=== PATIENT | male | born 1995 | race Caucasian/White ===

== ENCOUNTER 2021-06-22 14:08 | Emergency (ER) | payer OTHER ==
[~2021-06-22] VITALS: Ht 177.8 cm; Wt 56.7 kg
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
--- NOTE | 2021-06-22 14:21 | NUR ---
DR MORALES AT BEDSIDE
[2021-06-22] MEDS ORDERED: BACITRACIN ZINC OINT PACKET 1 EA PACKET TP ONE ×2 (14:45→15:00)
[2021-06-22] MEDS ORDERED: TDAP [DIPH/PERTUSSIS/TET] 0.5 ML VIAL IM ONE ×2 (14:45→15:00)
--- NOTE | 2021-06-22 14:50 | NUR ---
WOUND CARE PERFORMED BY EMT
[2021-06-22] MEDS ORDERED: CEPH500C2 PO ×2 (14:57→15:04)
--- NOTE | 2021-06-22 15:11 | NUR ---
Patient discharged to home in stable condition. Written and verbal after care instructions given. Patient verbalizes understanding of instruction.
[2021-06-22 15:12] VITALS: BP 127/88
== END 2021-06-22 15:13 | disposition home or self-care (01) ==
LOC: ER 15:03
DX: T22.292A Burn of second degree of multiple sites of left shoulder and upper limb, except wrist and hand, initial encounter (principal); Z60.2 Problems related to living alone; X10.2XXA Contact with fats and cooking oils, initial encounter; Y93.89 Activity, other specified; Y92.89 Other specified places as the place of occurrence of the external cause; Y99.0 Civilian activity done for income or pay
CPT/HCPCS: 90715